=== PATIENT | female | born 2000 | race Caucasian/White ===

== ENCOUNTER 2020-01-04 16:38 | Emergency (ER) | payer OTHER ==
[~2020-01-04] VITALS: Ht 165.1 cm; Wt 61.2 kg
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
--- OUTSIDE RECORDS SUMMARY | 2020-01-04 17:25 | XMS REPORT | Clinical Summary ---
Author Author [facility] Organization [facility] Address Unknown Phone Unavailable Care Team Providers Care Track Patrol Name Role Phone PCP Unavailable Allergies No Known Allergies Medications End Date Status Medication Sig Dispensed Refills Start Date Active lamoTRIgine (LAMICTAL) Take 150 mg 0 150 mg tablet by mouth. Active lisdexamfetamine Take 1 30 capsule 0 (VYVANSE) 50 mg capsule by 9 capsuleIndications: mouth every Attention deficit morning hyperactivity disorder (after (ADHD), combined type breakfast). Active Problems Problem Noted Date Seasonal allergic rhinitis 05/11/2015 Attention deficit hyperactivity disorder (ADHD) 12/28 Moderate intellectual disability 07/14/2013 Epilepsy 07/08/2013 Immunizations Name Administration Dates Next Due DTP Diphtheria, Tetanus, 09/20/2004, 05/07/2001, 06/2000, 2000, Pertussis Vaccine 2000 Hepatitis A Vaccine 07/08/2013, 09/20/2004 Hepatitis B Vaccine 05/07/2001, 2000, Hib Haemophilus 05/07/2001, 2000, , 2000 Influenzae Type B Human Papillomavirus 03/30/2015, 10/16/2013, Vaccine Influenza Vac (Fluarix) 03/30/2015 Influenza Vaccine 07/08/2013 MCV4 Meningococcal 02/27/2011 Conjugate (Menactra) MMR Measles, Mumps, 09/20/2004, 05/07/2001 Rubella Vaccine Poliovirus Ipv 09/20/2004, 2000, , 2000 Tdap Tetanus, diphtheria, 02/27/2011 acellular pertussis Vaccine Varicella Vaccine Pedi In 11/07/2010, 05/07/2001 Clinic Family History Medical History Relation Name Comments Diabetes Maternal Grandfather Other Maternal Grandfather Stroke Maternal Grandmother Seizures Mother Relation Name Status Comments Father Alive Maternal Grandfather Alive Maternal Grandmother Alive Mother Alive Sister Alive Social History Date Tobacco Use Types Packs/Day Years Used Never Smoker Smokeless Tobacco: Never Used Drinks/Week oz/Week Comments Alcohol Use Not Asked Sex Assigned at Date Recorded Not on file Industry Job Start Date Occupation Not on file Not on file Not on file Travel End Travel History Travel Start No recent travel history available. Last Filed Vital Signs Not on file Plan of Treatment Health Maintenance Due Date Last Done Comments IMM Influenza Seasonal 11/27/2019 03/30/2015, Nov to April (>/= 19 yrs) 07/08/2013 Results Not on fileafter 01/03/2019 Insurance Type Payer Benefit Subscriber ID Effective Phone Address Plan / Dates Group [facility] [employer] xxxxxxxxx 2015- [phone] [address] [facility] Present [id number] [facility] [place], [place] [address]
--- OUTSIDE RECORDS SUMMARY | 2020-01-04 17:25 | XMS REPORT | Continuity of Care Document ---
Author Author [facility] t Organization [facility] Address [address] [place] [address] Phone Unavailable Care Team Providers Care Cda Teacher Name Role Phone Darian Rubio Attphys Ayaka Bah Attphys Unavailable Linda Orona Attphys Unavailable Chinmay Babcock Attphys Mattie Lu Attphys Autumn Sneed Attphys Unavailable Linda Orozco Attphys Unavailable Erica Ramires Attphys Linda Boyd Attphys Unavailable WetzelBetsy mejia Attphys Unavailable Malik-SachnKelly mckay Attphys Unavailable Yuliana Perez Attphys Unavailable Gen Pruitt Attphys Unavail able Bourne Iliana Attphys Unavailable Status, Fax Attphys Unavailable Jordy Crockett Attphys Mckenzie Brewer Attphys Evelyn Gerber Attphys Unavailable Maria Teresa Gilbert Attphys Unavailable Kathy John Attphys Unavailable Yamilka Alvarenga Attphys Unavailable Yuliana Perez Unavailable Unavailable Darian Rubio Unavailable Problems Condition Name Condition Details Condition Category Status Onset Date Resolution Date Last Treatment Date Treating Clinician Comments Source Seizure disorder Condition Active 2019-06-26 00:00:00 2 15:46:47 Yuliana Perez [facility] Annual exam Condition Active 2019-06-26 00:00:00 06-25 15:46:47 Chris [facility] BMI 20.0-20.9 Condition Active 2019-06-26 00:00:00 2019 15:46:47 Tashua [facility] ADHD, COMBINED PRESENTATION, MODERATE Condition Active 14-08-10 00:00:00 2019-06-26 09[facility]40[facility] Condition Active 2018-08-06 00:0 0:00 2019-06-26 09:40:35 [facility] Seasonal allergic rhinitis Seasonal allergic rhinitis Disease Active 2015-05-11 00:00:00 [facility] Attention deficit hyperactivity disorder (ADHD) Attent ion deficit hyperactivity disorder (ADHD) Disease Active 2014-01-20 00:00:00 [facility] Moderate intellectual disability Moderate intellectual disabilit y Disease Active 2013-07-14 00:00:00 [facility] Epilepsy Epilepsy Disease Active 2013-07-08 00:00:00 [facility] Allergies, Adverse Reactions, Alerts This patient has no known allergies or adverse reactions. Family History Family Member Diagnosis Comments Start Date Stop Date Source Maternal grandfather Diabetes [facility] Maternal grandfather Other [facility] Maternal grandmother Stroke [facility] Natural mother Seizures [facility] Social History Social Habit Start Date Stop Date Quantity Comments Source Sex Assigned At [facility] social history reviewed E&M 2019-12-29 09:53:11 2019-12-29 09:53 :11 reviewed today [facility] social history E&M 2019-12-29 09:53:11 2019-12-29 09:53:11 Alex fry. One sister 22 y/o Born in [facility]. City: [place]. State: [place]. Live with mother, mother's BF, sister and sister's BF, also her niece (2 y/o)student . Highest education level: high school graduate. Would like to work with her sister at a [employer]. Thinking aout going to college ([employer])Sex at : Female. [facility] home/family situation, assessment 2019-12-29 09:53:11 2019-12-29 09:53:11 Live with mother, mother's BF, sister and sister's BF, also her niece (3 y/o) [facility] time of call 2019-12-22 10:52:33 2019-12-22 10:52:33 12/22/2019 10:53 AM [facility] drug use, illicit 2019-08-18 16:04:31 2019-08-18 16:04:31 Never [facility] alcohol use 2019-08-18 16:04:31 2019-08-18 16:04:31 Never [facility] tobacco use (cigarettes, cigar, chew, pipe) 2019-08-18 16:04 :31 2019-08-18 16:04:31 Currently [facility] is there any chance that you could be ? 2019-06-26 0 9:18:13 2019-06-26 09:18:13 No [facility] passive cigarette smoke exposure 2019-06-26 09:18:13 2019-06-26 09:18 :13 No [facility] assessment of health literacy (NCQA [facility] 2014 Standard s, 3C10) 2019-06-26 09:18:13 2019-06-26 09:18:13 Adequate [facility] Health if the patient is using/has used a vapin g item, Current, Former, Never Used, Not asked 2019-06-26 09:18:13 2019-06-26 09:18:13 No L [facility] sexual orientation 2018-08-01 10:47:11 2018-08-01 10:47:11 Lesbian [facility] Occupation #1 2018-08-01 10:47:11 2018-08-01 10:47:11 student [facility] sex at 2018-08-01 10:47:11 2018-08-01 10:47:11 Female [facility] family support 2018-08-01 10:47:11 2018-08-01 10:47:11 One sist er 22 y/o, not in touch with his father [facility] Alcohol intake 2018-04-23 00:00:00 2018-04-23 00:00:00 [facility] Smoking Status Start Date Stop Date Source Never smoker [facility] Medications Ordered Medication Name Filled Medication Name Start Date Stop Da te Current Medication? Ordering Clinician Indication Dosage Frequency Signature (SIG) Comments Components Source (FLUOXETINE HCL) 20 MG CAPS 2019-12-29 00:00:00 Ye aldo Marinamo Leoz Callizo 1{Capsule} 1xD Take one capsule daily Le [facility] VYVANSE (LISDEXAMFETAMINE DIMESYLATE) 40 MG CAPS 2 00:00:00 Yes Darian Leoz Callizo 1{Capsule} 1xD Take one capsule daily [facility] (ESCITALOPRAM OXALATE) 5 MG TABS 2019-11-06 00:00:00 12-28 00:00:00 No Darian Leoz Callizo 1{Tablet} 1xD TAKE 1 TABLET BY MOUTH PAT Y [facility] VYVANSE (LISDEXAMFETAMINE DIMESYLATE) 50 MG CAPS 2018-11-26 00:00:00 2019-12-29 00:00:00 No Darian Leoz Callizo 1{Capsule} 1xD Take one capsule daily [facility] VYVANSE (LISDEXAMFETAMINE DIMESYLATE) 40 MG CAPS 2018-09-27 00:00:00 2018-11-26 00:00:00 No 1{Capsule} 1xD Take one capsule daily [facility] [id number] [facility] VYVANSE (LISDEXAMFETAMINE DIMESYLATE) 40 MG CAPS 2018-08-01 00:00:00 2018-11-26 00:00:00 No 1{Capsule} 1xD Take one capsule daily [facility] lisdexamfetamine (VYVANSE) 50 mg capsule 2018-05-21 00:00:00 Yes Attention deficit hyperactivity disorder (ADHD), combined type 50mg QD Take 1 capsule by mouth every morning (after breakfast). [facility] (LAMOTRIGINE) 100 MG TABS 2017-11-19 00:00:00 Yes Jordy Crockett TK 2 TS PO BID #120, 30 days supply, Prescribed by IVONNE SHARMA [facility] lamoTRIgine (LAMICTAL) 150 mg tablet 2015-07-07 14:37:01 Ye aldo 150mg Take 150 mg by mouth. [facility] Immunizations Ordered Immunization Name Filled Immunization Name Date Status Comments Source Human Papillomavirus Vaccine 2015-03-30 00:00:00 Completed [facility] Influenza Vac (Fluarix) 2015-03-30 00:00:00 Completed [facility] Human Papillomavirus Vaccine 2013-10-16 00:00:00 Completed [facility] Human Papillomavirus Vaccine 2013-09-12 00:00:00 Completed [facility] Hepatitis A Vaccine 2013-07-08 00:00:00 Completed [facility] Influenza Vaccine 2013-07-08 00:00:00 Completed [facility] Tdap Tetanus, diphtheria, acellular pertussis Vaccine 2011-02-27 00:00:00 [facility] MCV4 Meningococcal Conjugate (Menactra) 2011-02-27 00:00:0 0 Completed [facility] Varicella Vaccine [facility] 2010-11-07 [facility] Dip[facility], Tetanus, Pertussis Vaccine 2004-09-20 00:0 0:00 [facility] Hepatitis A Vaccine 2004-09-20 00:00:00 [facility] MMR Measles, Mumps, Rubella Vaccine 2004-09-20 00:00:00 Co mpleted [facility] Poliovirus Ipv 2004-09-20 00:00:00 Completed [facility] DTP Diphtheria, Tetanus, Pertussis Vaccine 2001-05-07 00:0 0:00 Completed [facility] Hepatitis B Vaccine 2001-05-07 00:00:00 [facility] Hib Haemophilus Influenzae Type B 2001-05-07 00:00:00 Comp [facility] MMR Measles, Mumps, Rubella Vaccine 2001-05-07 00:00:00 Co mpleted [facility] Varicella Vaccine Pedi In Clinic 2001-05-07 [facility] Diphtheria, Tetanus, Pertussis Vaccine 2000 00:0 0:00 Completed [facility] Hib Haemophilus Influenzae Type B 2000 00:00:00 Comp leted [facility] Poliovirus Ipv 2000 00:00:00 Completed [facility] DTP Diphtheria, Tetanus, Pertussis Vaccine 2000 00:0 0:00 Completed [facility] Hepatitis B Vaccine 2000 00:00:00 Completed [facility] Hib Haemophilus Influenzae Type B 2000 00:00:00 Comp leted [facility] Poliovirus Ipv 2000 00:00:00 Completed [facility] DTP Diphtheria, Tetanus, Pertussis Vaccine 2000 00:0 0:00 Completed [facility] Hepatitis B Vaccine 2000 00:00:00 Completed [facility] Hib Haemophilus Influenzae Type B 2000 00:00:00 Comp leted [facility] Poliovirus Ipv 2000 00:00:00 Completed H [facility] Vital Signs Vital Name Observation Time Observation Value Comments Source oxygen saturation, oximetry 2019-06-26 09:18:13 98 % [facility] blood pressure, diastolic 2019-06-26 09:18:13 82 mm[Hg] [facility] blood pressure, systolic 2019-06-26 09:18:13 115 mm[Hg] [facility] respiratory rate E&M 2019-06-26 09:18:13 18 /min [facility] pulse rate 2019-06-26 09:18:13 100 /min [facility] temperature site 2019-06-26 09:18:13 oral Lega [facility] temperature E&M 2019-06-26 09:18:13 97.8 [degF] [facility] 2019-06-26 09:18:13 132.80 [lb_av] [facility] weight in kilograms E&M 2019-06-26 09:18:13 60.36 kg [facility] height in centimeters E&M 2019-06-26 09:18:13 170.18 cm [facility] weight percentile 2019-06-26 09:18:13 61 Leg [facility] height percentile 2019-06-26 09:18:13 86 Leg [facility] pulse rate 2019-04-08 10:40:41 89 /min [facility] blood pressure, diastolic 2019-04-08 10:40:41 77 mm[Hg] [facility] blood pressure, systolic 2019-04-08 10:40:41 120 mm[Hg] [facility] weight E&M 2019-04-08 10:40:41 137.38 [lb_av] [facility] weight in kilograms E&M 2019-04-08 10:40:41 62.45 kg [facility] weight percentile 2019-04-08 10:40:41 68 [facility] blood pressure, diastolic 2019-01-07 13:12:56 74 mm[Hg] [facility], systolic 2019-01-07 13:12:56 108 mm[Hg] [facility] pulse rate 2019-01-07 13:12:56 87 /min [facility] weight E&M 2019-01-07 13:12:56 136.40 [lb_av] [facility] weight in kilograms E&M 2019-01-07 13:12:56 62 [facility] height E&M 2019-01-07 13:12:56 67 [in_i] [facility] weight percentile 2019-01-07 13:12:56 68 Leg [facility] height percentile 2019-01-07 13:12:56 86 Leg [facility] blood pressure, diastolic 2018-11-26 12:50:25 76 mm[Hg] [facility] blood pressure, systolic 2018-11-26 12:50:25 108 mm[Hg] [facility] pulse rate 2018-11-26 12:50:25 82 /min [facility] weight E&M 2018-11-26 12:50:25 137.38 [lb_av] [facility] weight in kilograms E&M 2018-11-26 12:50:25 62.45 [facility] height E&M 2018-11-26 12:50:25 67 [in_i] [facility] weight percentile 2018-11-26 12:50:25 70 Leg [facility] height percentile 2018-11-26 12:50:25 86 [facility]ending [facility] blood pressure, diastolic 2018-08-27 12:56:13 75 mm[Hg] [facility] blood pressure, systolic 2018-08-27 12:56:13 113 mm[Hg] [facility] pulse rate 2018-08-27 12:56:13 93 /min [facility] weight E&M 2018-08-27 12:56:13 138 [lb_av] [facility] weight in kilograms E&M 2018-08-27 12:56:13 62.73 [facility] height E&M 2018-08-27 12:56:13 67 [in_i] [facility] weight percentile 2018-08-27 12:56:13 72 [facility] height percentile 2018-08-27 12:56:13 86 Pending [facility] blood pressure, diastolic 2018-08-01 10:47:11 71 mm[Hg] [facility] blood pressure, systolic 2018-08-01 10:47:11 104 mm[Hg] [facility] pulse rate 2018-08-01 10:47:11 68 /min [facility] weight E&M 2018-08-01 10:47:11 135 [lb_av] [facility] weight in kilograms E&M 2018-08-01 10:47:11 61.36 kg [facility] height E&M 2018-08-01 10:47:11 67 [in_i] [facility] weight percentile 2018-08-01 10:47:11 68 [facility]ending [facility] height percentile 2018-08-01 10:47:11 86 [facility]ending [facility] Procedures Procedure Date / Time Performed Performing Clinician Sour e Diagnostic evaluation with medical - [id number] 2018-08-06 18:49: 04 Darian Rubio [facility] Plan of Care Planned Activity Planned Date Details Comments Source Future Scheduled Test 2019-11-27 00:00:00 IMM Influenza Seas onal Nov to April (>/= 19 yrs) [code = IMM Influenza Seasonal Nov to April (>/= 19 yrs)] [facility] Encounters Start Date/Time End Date/Time Encounter Type Admission Type Attendi [facility] Care Department Encounter ID Source 2019-12-29 00:00:00 2019-12-29 00:00:00 Office Visit Darian Rubio [facility] Encounter/[id number] [facility] 2019-12-23 00:00:00 2019-12-23 00:00:00 Office Visit Bo Bah [facility] Encounter/[id number] [facility] 2019-12-22 00:00:00 2019-12-22 00:00:00 Office Visit Darian Barkley Yajaira Martinez, Luis E [facility] Encounter/[id number] [facility] 2019-12-12 00:00:00 2019-12-12 00:00:00 Office Visit Darian Rubio [facility] Encounter/[id number] [facility] 2019-11-06 00:00:00 2019-11-06 00:00:00 Office Visit Darian BarkleyChinmay [facility] Encounter[facility][id number] [facility] 2019-11-04 00:00:00 2019-11-04 00:00:00 Office Visit Mattie Long Valerie [facility] Encounter/[id number] [facility] 2019-09-16 00:00:00 2019-09-16 00:00:00 Office Visit Darian Barkley Jose E [facility] Encounter/[id number] [facility] 2019-09-10 00:00:00 2019-09-10 00:00:00 Office Visit Sedrick Ramires [facility] Encounter/[id number] [facility] 2019-08-18 00:00:00 2019-08-18 00:00:00 Office Visit Darian Rubio [facility] Encounter/[id number] [facility] 2019-08-05 00:00:00 2019-08-05 00:00:00 Office Visit Darian Barkley Yajaira Zuniga Flores, Carlos E [facility] Encounter/[id number] [facility] 2019-08-05 00:00:00 2019-08-05 00:00:00 Office Visit Radha Wetzel [facility] Encounter/[id number] [facility] 2019-07-30 00:00:00 2019-07-30 00:00:00 Office Visit Darian Barkley Yajaira Arteaga-Sachnik, Maria [facility] Encounter/[id number] [facility] 2019-07-02 00:00:00 2019-07-02 00:00:00 Office Visit Darian Rubio [facility] Encounter/[id number] [facility] 2019-07-01 00:00:00 2019-07-01 00:00:00 Office Visit Yuliana Perez [facility] Encounter/[id number] [facility] 2019-06-30 00:00:00 2019-06-30 00:00:00 [facility] Encounter/[id number] [facility] 2019-06-28 00:00:00 2019-06-28 00:00:00 Office Visit Yuliana Curtis Jacqueline [facility] Encounter/[id number] [facility] 2019-06-26 00:00:00 2019-06-26 00:00:00 Office Visit Yuliana Curtis Jacqueline [facility] Encounter/[id number] [facility] 2019-06-26 00:00:00 2019-06-26 00:00:00 Office Visit Status, Fax [facility] Encounter/[id number] [facility] 2019-06-26 00:00:00 2019-06-26 00:00:00 Office Visit Status, Isaccx [facility] Encounter/[id number] [facility] 2019-06-26 00:00:00 2019-06-26 00:00:00 Office Visit Status, Iasccx [facility] Encounter/[id number] [facility] 2019-06-26 00:00:00 2019-06-26 00:00:00 Office Visit Yuliana Perez [facility] Encounter/[id number] [facility] 2019-06-26 00:00:00 2019-06-26 00:00:00 Office Visit Jordy Guillaume, Iliana Hinojosa Berlondrika [facility] Encounter/[id number] Jane [facility] 2019-06-23 00:00:00 2019-06-23 00:00:00 Office Visit LeDarian Moran [facility] Encounter/[id number] [facility] 2019-05-23 00:00:00 2019-05-23 00:00:00 Office Visit Timothy Darian Gambino [facility] Encounter/[id number] [facility] 2019-05-23 00:00:00 2019-05-23 00:00:00 Office Visit Darian Barkley Norma [facility] En[facility]/[id number] [facility] 2019-05-23 00:00:00 2019-05-23 00:00:00 Office Visit Darian Barkley Maria [facility] Encounter/[id number] [facility] 2019-04-08 00:00:00 2019-04-08 00:00:00 Office Visit Darian Barkley Jazmin [facility] Encounter/[id number] [facility] 2019-01-07 00:00:00 2019-01-07 00:00:00 Office Visit Darian Barkley Norma [facility] Encounter/[id number] [facility] 2018-11-26 00:00:00 2018-11-26 00:00:00 Office Visit Darian Barkley Velia [facility] Encounter/[id number] [facility] 2018-08-27 00:00:00 2018-08-27 00:00:00 Office Visit Darian Barkley Norma [facility] Encounter/[id number] [facility] 2018-08-01 00:00:00 2018-08-01 00:00:00 Office Visit Darian Rubio [facility] Encounter/[id number] [facility] 2018-08-01 00:00:00 2018-08-01 00:00:00 Office Visit Darian Rubio [facility] Encounter/[id number] [facility] 2018-08-01 00:00:00 2018-08-01 00:00:00 Office Visit Darian Barkley Norma [facility] Encounter/[id number] [facility] 2018-05-28 00:00:00 2018-05-28 00:00:00 Office Visit Deidra Alvarenga [facility] Encounter/[id number] [facility] 2018-01-15 00:00:00 2018-01-15 00:00:00 Outpatient [facility] [id number] [facility] 2018-01-04 00:00:00 2018-01-04 00:00:00 Outpatient [facility] [id number] [facility] 2018-01-03 00:00:00 2018-01-03 00:00:00 Outpatient [facility] [id number] [facility] 2017-11-13 14:43:33 2017-11-13 14:43:33 Outpatient [facility] [id number] [facility] 2017-09-04 13:51:52 2017-09-04 13:51:52 Outpatient [facility] [id number] [facility] 2017-07-03 13:11:09 2017-07-03 13:11:09 Outpatient [facility] [id number] [facility] 2017-06-19 00:00:00 2017-06-19 00:00:00 Outpatient [facility] [id number] [facility] 2017-04-19 15:08:58 2017-04-19 15:08:58 Outpatient [facility] [id number] [facility] 2017-01-30 00:00:00 2017-01-30 00:00:00 Outpatient [facility] [id number] [facility] 2016-11-28 14:32:22 2016-11-28 14:32:22 Outpatient [facility] [id number] [facility] Results Test Description Test Time Test Comments Results Result Comments Source calcium, serum 2019-06-26 10:01:00 Test Item calcium, serum (test code = 2000-8) 9.6 mg/dL 8.7-10.2 [facility] venous [id number] 10:01:00* Test Item Value Reference Range Interpretation Comments carbon dioxide, venous blood (test code = 2026-1) 26 mmol/L 20-2 9 [facility], [id number] 10:01:00* Test Item Value Reference Range Interpretation Comments chloride, serum (test code = 2075-0) 102 mmol/L 96-106 [facility] Healthpotassium, [id number] 10:01:00* Test Item Value Reference Range Interpretation Comments potassium, serum (test code = 2823-3) 4.4 mmol/L 3.5-5.2 [facility] Healthsodium, [id number] 10:01:00* Test Item Value Reference Range Interpretation Comments sodium, serum (test code = 2951-2) 142 mmol/L 134-144 [facility]/creatinine ratio, [id number] 10:01:00 * Test Item Value Reference Range Interpretation Comments urea nitrogen/creatinine ratio, serum (test code = 3097-3) 23 9-23 [facility] HealtheGFR if [id number] 10:01:00* Test Item Value Reference Range Interpretation Comments eGFR if (test code = 60704-9) 146 mL/min/((173/100 ).m2) >59 [facility] Rate (calc)2019-06-26 10:01:00* Test Item Value Reference Range Interpretation Comments Estimated Glomerular Filtration Rate (calc) (test code = 67551-0) 127 mL/min/((173/100).m2) >59 [facility]inine, [id number] 10:01:00* Test Item Value Reference Range Interpretation Comments creatinine, serum (test code = 2160-0) 0.69 mg/dL 0.57-1.00 [facility] nitrogen, [id number] 10:01:00* Test Item Value Reference Range Interpretation Comments urea nitrogen, blood (test code = 3094-0) 16 mg/dL 6-20 [facility], [id number] 10:01:00* Test Item Value Reference Range Interpretation Comments blood glucose, random (test code = 2339-0) 83 mg/dL 65-99 [facility], percentage of total cells, blood 2019-06-26 10:01:00* Test Item Value Reference Range Interpretation Comments immature granulocytes, percentage of total cells, bloo d (test code = 26903-2) 0 % [facility] count, [id number] 10:01:00* Test Item Value Reference Range Interpretation Comments basophil count, absolute (test code = 60827-7) 0.0 x10E3/uL 0.0-0.2 [facility] HealthEosinophil Absolute [id number] 10:01:00* Test Item Value Reference Range Interpretation Comments Eosinophil Absolute Count (test code = 14025-5) 0.1 X10E3/UL 0.0-0. 4 [facility] Healthmonocyte count, blood, [id number] 10:01:00* Test Item Value Reference Range Interpretation Comments monocyte count, blood, automated (test code = 742-7) 0.6 X10E3/UL 0 .1-0.9 [facility], blood, [id number] 10:01:00* Test Item Value Reference Range Interpretation Comments lymphocyte count, blood, automated (test code = 731-0) 1.8 X10E3/UL 0.7-3.1 [facility] [id number] 10:01:00* Test Item Value Reference Range Interpretation Comments Absolute Neutrophils (test code = 19033-7) 4.3 X10E3/UL 1.4-7.0 [facility] as percent of blood [id number] 10:01:00* Test Item Value Reference Range Interpretation Comments basophils as percent of blood leukocytes (test code = 707-0) 0 % [facility] Healtheosinophils as percent of blood jfwehxnhkn4937-00-32 10:01:00* Test Item Value Reference Range Interpretation Comments eosinophils as percent of blood leukocytes (test code = 713-8) 2 % [facility] Healthmonocytes as percent of blood [id number] 10:01:00* Test Item Value Reference Range Interpretation Comments monocytes as percent of blood leukocytes (test code = 5905-5) 9 % [facility] [id number] 10:01:00* Test Item Value Reference Range Interpretation Comments lymphocytes as percent of blood leukocytes (test code = 736-9) 26 % [facility] percent of blood [id number] 10:01:00* Test Item Value Reference Range Interpretation Comments neutrophils as percent of blood leukocytes (test code = 770-8) 63 % [facility] [id number] 10:01:00* Test Item Value Reference Range Interpretation Comments platelet count (test code = 777-3) 294 X10E3/UL 150-450 [facility] [id number] 10:01:00* Test Item Value Reference Range Interpretation Comments red blood cell distribution width (test code = 788-0) 13.5 % 11.7-15.4 [facility] corpuscular hemoglobin concentration, [id number] 10:01:00* Test Item Value Reference Range Interpretation Comments mean corpuscular hemoglobin concentration, RBC (test code = 786-4) 30.0 G/DL 31.5-35.7 L [facility] corpuscular hemoglobin, [id number] 10:01:00* Test Item Value Reference Range Interpretation Comments mean corpuscular hemoglobin, RBC (test code = 785-6) 26.5 pg 2 6.6-33.0 L [facility] corpuscular volume, [id number] 10:01:00* Test Item Value Reference Range Interpretation Comments mean corpuscular volume, RBC (test code = 787-2) 88 fL 79-97 [facility] [id number] 10:01:00* Test Item Value Reference Range Interpretation Comments hematocrit, blood (test code = 4544-3) 42.0 % 34.0-46.6 [facility], [id number] 10:01:00* Test Item Value Reference Range Interpretation Comments hemoglobin, blood (test code = 718-7) 12.6 g/dL 11.1-15.9 [facility] (RBC[facility] [id number] 10:01:00* Test Item Value Reference Range Interpretation Comments erythrocyte (RBC) count (test code = 789-8) 4.76 X10E6/UL 3.77-5.28 [facility], [id number] 10:01:00* Test Item Value Reference Range Interpretation Comments leukocyte count, blood (test code = 6690-2) 6.9 X10E3/UL 3.4-10.8 [facility]
== END 2020-01-04 17:40 | disposition home or self-care (01) ==
LOC: ER 16:58
DX: S01.112A Laceration without foreign body of left eyelid and periocular area, initial encounter (principal); W20.8XXA Other cause of strike by thrown, projected or falling object, initial encounter; Y92.008 Other place in unspecified non-institutional (private) residence as the place of occurrence of the external cause; G40.909 Epilepsy, unspecified, not intractable, without status epilepticus; F90.9 Attention-deficit hyperactivity disorder, unspecified type; F32.9 Major depressive disorder, single episode, unspecified
CPT/HCPCS: 99284